=== PATIENT | female | born 1990 | race African-American/Black ===

== ENCOUNTER 2020-08-31 18:14 | Inpatient (IN) | payer OTHER ==
[~2020-08-31] VITALS: Ht 167.6 cm; Wt 80.8 kg
[2020-08-31 19:35] LABS: BASOPHILS % (AUTO) 0.5 % (0.0-2.0); EOSINOPHILS % (AUTO) 0.8 % (1.0-6.0); HEMATOCRIT 45.3 % (36-46); LYMPHOCYTES # (AUTO) 2.1 K/uL (1.0-4.8); LYMPHOCYTES % (AUTO) 22.7 % (22.0-44.0); MEAN CORPUSCULAR HEMOGLOBIN 30.3 pg (26.0-34.0); MEAN CORPUSCULAR HGB CONC 33.2 G/dL (31.0-37.0); MEAN CORPUSCULAR VOLUME 91 fL (80-100); MONOCYTES # (AUTO) 0.4 K/uL (0.1-1.0); MONOCYTES % (AUTO) 4.5 % (2.0-9.0); NEUTROPHILS # (AUTO) 6.5 K/uL (1.8-7.7); NEUTROPHILS % (AUTO) 71.5 % (40.0-70.0); PLATELET COUNT (AUTO) 438 K/uL (150-450); RED BLOOD CELL COUNT(AUTO) 4.96 MIL/uL (4.00-5.20); RED CELL DISTRIBUTION WIDTH 13.7 % (11.5-14.5)
[2020-08-31 19:54] LABS: ANION GAP 14 mmol/L (8-16); CALCIUM, TOTAL 9.4 mg/dL (8.8-10.5); CARBON DIOXIDE 20 mmol/L (22-29); CHLORIDE 103 mmol/L (98-107); CREATININE 1.07 mg/dL (0.60-1.30); GLOMERULAR FILTR. RATE CALC 60 mL/min (>60); GLUCOSE,RANDOM 128 mg/dL (70-110); POTASSIUM 3.4 mmol/L (3.5-5.1); SODIUM SERUM 137 mmol/L (136-145); UREA NITROGEN, BLOOD 10 mg/dL (7-18)
[2020-08-31 19:57] LABS: SALICYLATE 6.1 mg/dL (2.8-20.0)
[2020-08-31 20:00] LABS: ALANINE AMINOTRANSFERASE 22 U/L (12-78); ALBUMIN 4.7 g/dL (3.4-5.0); ALKALINE PHOSPHATASE 96 U/L (46-116); ASPARTATE AMINOTRANSFERASE 20 U/L (15-37); BILIRUBIN,TOTAL 0.2 mg/dL (0.1-1.0)
[2020-08-31 20:08] LABS: ACETAMINOPHEN < 2 mcg/mL (10-30)
[2020-08-31 20:26] LABS: COVID AG,FIA SOURCE NASOPHARYNGEAL
[2020-08-31] MEDS ORDERED: HALOPERIDOL 5 MG TABLET PO PRN (20:45)
[2020-09-01] MEDS: LORazepam 2 MG TABLET PO PRN (00:24)
[2020-09-01 00:53] VITALS: BP 131/92
[2020-09-01] MEDS: ZOLPIDEM TARTRATE 10 MG TABLET PO PRN ×2 (01:03→20:43)
[2020-09-01 06:57] LABS: CHOL/HDL RATIO 2.6 (3.9-5.7)
[2020-09-01] MEDS ORDERED: ACETAMINOPHEN 325 MG TABLET PO PRN (07:45)
[2020-09-01] MEDS ORDERED: MAGNESIUM HYDROXIDE SUSPENSION 30 ML UDCUP PO PRN (07:45)
[2020-09-01] MEDS ORDERED: DOCUSATE SODIUM 100 MG CAPSULE PO PRN (07:45)
[2020-09-01] MEDS ORDERED: LOPERAMIDE HCL 2 MG CAPSULE PO PRN (07:45)
[2020-09-01] MEDS ORDERED: ONDANSETRON HCL 4 MG TABLET PO PRN (07:45)
[2020-09-01] MEDS ORDERED: IBUPROFEN 400 MG TABLET PO PRN (07:45)
[2020-09-01] MEDS ORDERED: GuaiFENesin/D-METHORPHAN [SUGAR-FREE] 200-20MG/10 ML SYRUP UDCUP PO PRN (07:45)
[2020-09-01] MEDS ORDERED: PETROLATUM,WHITE 28 GM JELLY TP PRN (07:45)
[2020-09-01] MEDS ORDERED: MAG HYDROX/AL HYDROX/SIMETH ES 30 ML SUSPENSION UDCUP PO PRN (07:45)
[2020-09-01] MEDS ORDERED: NICOTINE 14 MG/24 HOUR PATCH TD PRN (07:45)
[2020-09-01] MEDS ORDERED: ALBUTEROL SULFATE HFA 90 MCG/PUFF 8 GM INHALER IH PRN (07:45)
[2020-09-01] MEDS ORDERED: CloNIDine HCL 0.1 MG TABLET PO PRN (07:45)
[2020-09-01 08:00] VITALS: BP 123/76
[2020-09-01] MEDS: BuPROPion HCL XL 150 MG ER TABLET PO SCH (13:38)
[2020-09-01 16:00] VITALS: BP 108/68
[2020-09-02] MEDS: BuPROPion HCL XL 150 MG ER TABLET PO SCH (08:22)
[2020-09-02 08:59] VITALS: BP 118/98
[2020-09-02] MEDS: LORazepam 2 MG TABLET PO PRN (10:38)
[2020-09-02 15:59] VITALS: BP 113/68
[2020-09-02 16:34] VITALS: BP 113/68
[2020-09-02] MEDS: ZOLPIDEM TARTRATE 10 MG TABLET PO PRN (20:42)
[2020-09-03] MEDS: BuPROPion HCL XL 150 MG ER TABLET PO SCH (08:33)
[2020-09-03 08:56] VITALS: BP 125/83
[2020-09-03] MEDS ORDERED: BUPR-93 PO (09:42)
== END 2020-09-03 13:43 | disposition home or self-care (01) | DRG 885 ==
LOC: EDBD 18:14 → EMS 18:14 → 3EI 20:45
PROVIDERS: ADMIT Psychiatry & Neurology Psychiatry; ATTEND Psychiatry & Neurology Psychiatry
DX: F33.2 Major depressive disorder, recurrent severe without psychotic features (principal); E87.6 Hypokalemia; F41.9 Anxiety disorder, unspecified; T50.901A Poisoning by unspecified drugs, medicaments and biological substances, accidental (unintentional), initial encounter; Y92.89 Other specified places as the place of occurrence of the external cause; N80.9 Endometriosis, unspecified; R73.9 Hyperglycemia, unspecified; Z20.828 Contact with and (suspected) exposure to other viral communicable diseases
CPT/HCPCS: 84132; 87426; 93005; G0480; G0481